=== PATIENT | female | born 1980 | race Caucasian/White ===

== ENCOUNTER 2022-06-15 12:06 | Emergency (ER) | payer OTHER, SELFPAY ==
[2022-06-15 12:15] VITALS: BP 139/71; PULSE 74; RESP 20; TEMP 36.4; O2SAT 98; BMI 30.2
--- NOTE | 2022-06-15 12:22 | ED_ITS ---
HPI - General Adult General Chief complaint: General Medical Stated complaint: Medication refill Time Seen by Provider: 06/15/22 12:20 Source: patient Mode of arrival: ambulatory Limitations: no limitations History of Present Illness HPI narrative: [age] year female presents to ED for clonazepam refilled prescription. Patient states she is in between primary care providers. Patient denies any other complaints. patient states she takes clonopin 1mg BID. Related Data Previous Rx's Medication Instructions Recorded clonazepam 0.5 mg tablet (Klonopin) 0.5 mg PO BID 3 days #6 tabs 06/15/22 Allergies Allergy/AdvReac Type Severity Reaction Status Date / Time codeine [CODEINE] Allergy Unknown ITCHING Unverified 03/07/20 16:59 Review of Systems Review of Systems: medication refill Yes all other systems are reviewed and are negative [facility] Social History Social History Advance Directives: No Advance Directives Information Provided: No Physical Exam ED Vital Signs: Vital Signs - 24 hr 06/15/22 12:15 Temperature 97.6 F Pulse Rate 74 Respiratory Rate 20 Blood Pressure 139/71 Pulse Oximetry 98 Oxygen Delivery Method Room Air BMI result Body Mass Index 30.2 Const General: cooperative, healthy appearing, comfortable, no acute distress, well developed, alert, awake and Physically active Orientation/consciousness: oriented to person, oriented to place, oriented to time and patient oriented x3 HENMT Head: Yes normal to inspection, Yes No palpable skull fracture present, Yes normocephalic, Yes atraumatic and No abrasion Eyes General: appearance normal, both eyes and all related structures Neck Neck: Yes normal visual inspection, Yes full ROM, Yes no lymphadenopathy, Yes no meningeal signs, Yes trachea midline, Yes supple, No anterior neck swelling and No tender Chest Chest palpation & inspection: normal inspection of the chest and normal palpation of entire chest wall Resp Effort & Inspection: normal respiratory effort and able to speak in complete sentences Auscultation: clear to auscultation bilaterally Cardio Jugular venous distension: no JVD Heart sounds: S1 normal heart sound present and S2 normal heart sound present GI Inspection: Yes normal to inspection and No abdominal wall ecchymosis Palpation (GI): Soft to palpation, not firm, nontender, no guarding and not rigid General: No CVA tenderness and Yes no CVA tenderness Back/Spine/Pelvis Back: no CVA tenderness, No CVA tenderness and No back tenderness Skin General skin exam: no rashes or lesions noted and elasticity normal Neuro General: oriented to person, oriented to place, oriented to time, patient oriented x3, gait normal, tone normal, moves all extremities, Normal light touch and pain sensation, no meningeal signs, no focal motor deficits, CN's II-XI intact bilaterally and normal sensation to monofilament Extrem General: Yes normal to inspection and Yes full ROM Psych Appearance: grossly normal, well kempt and not disheveled Course Course Course Narrative: Medication refilled. Reevaluation(s) Reevaluation #1: patient given lower dose of klonopin and short coourse ( 0.5mg BID). Nurse Christal called [facility] and [place] and they state patient has not filled prescription of klonopin 1mg BID since September. Nurse boo called [facility] and was closed. Due to this patinet given lower dose and only 3 day course of klonopin. Discharge Plan Discharge Clinical Impression: Medication refill Patient Disposition: Home, Self-Care Instructions: Medicine Refill (ED) Additional Instructions: He will be given short course on lower dose of Klonopin. Please call your primary care provider for follow-up. Return to the ED for any flu side ideation, homicidal ideation, severe anxiety, any physical complaints, or any other concerning symptoms. Prescriptions: New clonazepam [Klonopin] 0.5 mg tablet 0.5 mg PO BID 3 Days Qty: 6 0RF Interventions: ED Discharge Assessment Last Done: 06/15/22 12:50 Discharge Date/Time: 06/15/22 12:50 Print Language: Portuguese
--- NOTE | 2022-06-15 12:38 | PC.NURSE ---
Addendum entered by Iraida Quintero 06/15/22 12:43: reached out to care team to see if they could assist in verifying patients dose. care team not able to see any more details on prescriptions than this RN is able to. Original Note: patient stated originally she ran out of script 2 weeks ago. states she filled it at [facility] in [facility] or [facility] in [place]. both locations called and stated [facility]: has not filled script since august and [facility]: has no record of filling script there. patient then stated she fills script at [facility] in their own pharmacy they have there. this rn attempted to reach [facility] but they are closed for holiday.
== END 2022-06-15 12:50 | disposition home or self-care (01) ==
PROVIDERS: Emergency Provider Emergency Medicine
DX: Z76.0 Encounter for issue of repeat prescription (principal)
CPT/HCPCS: 99282